=== PATIENT | male | born 1985 | race Caucasian/White ===

== ENCOUNTER → 2021-05-29 | Outpatient (CLI) | payer OTHER ==
--- NOTE | 2021-05-29 14:57 | RAD ---
MR#: [id number] Date of Study: 05/29/2021 Ordering Physician: GUILLERMO SPENCE Referring Physician: MABLE KIRBY Tech: APPROVED REPORT Test Type: Exercise Stress Nurse/Tech: Lupe Castro R.N. Test Indications: mitral valve prolapse Cardiac History: smoker, mitral valve prolapse Medications: See Electronic Medical Record Medical History: See Electronic Medical Record Resting ECG: SR w/ ST elevation in leads V2 & V3 Resting Heart Rate: 72 bpm Resting Blood Pressure: 147/70mmHg Pretest Chest Pain: No chest pain Nurse/Tech Notes SR, lungs CTA Stress Symptoms No chest pain or symptoms. POST EXERCISE Reason for Termination: Reached target heart rate Target HR: Yes Max HR: 165 bpm 105% of Maximum Predicted HR: 157 bpm Exercise duration: 17:00 min:sec, 6 Stage Exercise capacity: 16.9METs Max Blood Pressure: 174/71mmHg Blood Pressure response to exercise: Normal blood pressure response during stress. Heart Rate response to exercise: wnl Chest Pain: No. Arrhythmia: Yes. started having multiple PVC's after pt stopped exercising. ST Change: No. INTERPRETATION Stress EKG Conclusion: No acute evidence of ischemia. Conclusion 1. Normal resting EKG 2. Good exercise capacity with 16 metabolic equivalents achieved. 3. Normal stress EKG without evidence of ST/T wave changes. 4. Of note, patient had frequent PVCs in recovery. 5. Low risk study overall. Signed by : Elliott Terrazas, Electronically Approved : 05/29/2021 14:57:08
== END ==
LOC: NM 13:38
PROVIDERS: ATTEND Internal Medicine Cardiovascular Disease
DX: I34.1 Nonrheumatic mitral (valve) prolapse (principal); R07.9 Chest pain, unspecified
CPT/HCPCS: 93017